=== PATIENT | female | born 1970 | race African-American/Black ===

== ENCOUNTER → 2018-06-16 | Outpatient (CLI) | payer BC ==
[2018-06-16 16:25] LABS: BASO # 0.1 x10^3/uL (0.0-0.2); BASO % 1 % (0-3); EOS # 0.1 x10^3/uL (0.0-0.7); EOS % 1 % (0-3); HEMATOCRIT 39.6 % (36.0-47.0); HEMOGLOBIN 13.5 g/dL (12.0-15.5); LYMPH # 3.2 x10^3/uL (1.0-4.8); LYMPH % 44 % (24-48); MEAN CORPUSCULAR HEMOGLOBIN 36 pg (25-35); MEAN CORPUSCULAR HGB CONC 34 g/dL (31-37); MEAN CORPUSCULAR VOLUME 105 fL (79-100); MONO # 0.5 x10^3/uL (0.0-1.1); MONO % 7 % (0-9); NEUT # 3.4 x10^3uL (1.8-7.7); NEUT % 47 % (31-73); PLATELET COUNT 212 x10^3/uL (140-400); RED BLOOD COUNT 3.77 x10^6/uL (3.50-5.40); RED CELL DISTRIBUTION WIDTH 13.5 % (11.5-14.5); WHITE BLOOD COUNT 7.4 x10^3/uL (4.0-11.0)
[2018-06-16 16:55] LABS: ALBUMIN 3.8 g/dL (3.4-5.0); ALBUMIN/GLOBULIN RATIO 1.2 (1.0-1.7); CALCIUM 9.3 mg/dL (8.5-10.1); CREATININE 1.1 mg/dL (0.6-1.0); GFR 63.6; POTASSIUM 4.1 mmol/L (3.5-5.1); TOTAL BILIRUBIN 0.3 mg/dL (0.2-1.0); TOTAL PROTEIN 7.1 g/dL (6.4-8.2)
--- NOTE | 2018-06-25 14:16 | PREOP HP ---
DATE OF SERVICE: DATE OF SURGERY: 07/03/2018 Vazquez Butcher RN dictating for Dr. Juan Whittington. HISTORY OF PRESENT ILLNESS: The patient is a pleasant 48-year-old who is having difficulty with neck pain and pain primarily in the right shoulder and right upper medial scapular region. She says when she turns her head, she can develop numbness, which is primarily on the right side, but that it can radiate up behind her ear and into her right face. The problem has been present for several months. She states that she has frequent episodes of numbness and pain. She underwent an ACDF in 2005, which included a fusion at C5-C6 and C6-C7 and eventually did well from that. She has also recently had a right rotator cuff. She rates her pain in her neck and her upper posterior back as a 7/10. Heat helps her. She has had physical therapy for 2 weeks, which she said did not help. She has refused epidural steroid injections. PAST MEDICAL HISTORY: Asthma, hypertension and ulcer. PAST SURGICAL HISTORY: Rotator cuff surgery in 1989, cholecystectomy in , carpal tunnel release in 2000, hysterectomy in 2001, C5-C6 and C6-C7 fusion in 2005, hemorrhoidectomy in 2016. FAMILY HISTORY: Alzheimer disease, cancer, diabetes, heart problems or disease, hypertension. SOCIAL HISTORY: Employed by [employer]. . Exercises weekly. Denies tobacco use. Drinks alcohol 1-2 times per week. Drinks coffee daily. ALLERGIES: IV CONTRAST DYE. CURRENT MEDICATIONS: Lisinopril, Nexium and fluoxetine. REVIEW OF SYSTEMS: A 12-point review of systems has been obtained and is noncontributory except that mentioned above. PHYSICAL EXAMINATION: NEUROSURGERY EXAMINATION: GENERAL APPEARANCE: Alert, pleasant, in no acute distress. HEAD: Normocephalic and atraumatic. NECK AND THYROID: Qjfw-iu-undclpiu tenderness with palpation of posterior cervical region, well healed incision. SKIN: Warm and dry. MUSCULOSKELETAL: Cervical paraspinal muscle bulk is normal, cervical range of motion is restricted, normal range of motion of the upper extremities bilaterally. EXTREMITIES: No clubbing, cyanosis, or edema. NEUROLOGIC: Alert and oriented x 3. Normal recent and remote memory. Strength 5/5 in bilateral upper and lower extremities. Sensory is intact to light touch in the upper and lower extremities. Reflexes are present and symmetric in the upper and lower extremities bilaterally. Normal gait. IMAGING: Reviewed. I reviewed a cervical MRI scan. On that study, the fusion from C5 through C7 is seen well. At C3-C4, there is posterior disk bulge on the left and severe neural foraminal narrowing bilaterally, but worse on the right side. ASSESSMENT: 1. Radiculopathy, cervical region. 2. Cervicalgia. PLAN: I believe her problems are related to severe neural foraminal narrowing at C3-C4. I recommended anterior cervical diskectomy and fusion, note that she has failed conservative measures. I discussed with her the surgery and the risks. She understands. She would like to go ahead. We will make the arrangements. I did outline with her soft tissue structures of the neck and sequelae of injury to each. I spoke with her in detail about the expected postoperative course. She understands. She would like to go ahead. We will make the arrangements. JUAN WHITTINGTON MD DR: FARAZ/desi JOB#: [id number] / [id number]
== END | disposition home or self-care (01) ==
LOC: SURGPAT 13:38
PROVIDERS: ATTEND Neurological Surgery
DX: Z01.818 Encounter for other preprocedural examination (principal); M54.12 Radiculopathy, cervical region
CPT/HCPCS: 36415; 80053; 85025; 87641

== ENCOUNTER 2018-07-03 08:52 | Observation (INO) | payer BC ==
[~2018-07-03] VITALS: Ht 152.4 cm; Wt 69.0 kg
--- NOTE | 2018-07-03 06:52 | PREOP HP ---
DATE OF SERVICE: 07/03/2018 DATE OF SURGERY: 07/03/2018 HISTORY OF PRESENT ILLNESS: The patient is a pleasant 48-year-old who is having difficulty with neck pain and pain primarily in the right shoulder and right upper medial scapular region. She says when she turns her head, she can develop numbness, which is primarily on the right side, but that it can radiate up behind her ear and into her right face. The problem has been present for several months. She states that she has frequent episodes of numbness and pain. She underwent an ACDF in 2005, which included a fusion at C5-C6 and C6-C7 and eventually did well from that. She has also recently had a right rotator cuff surgery. She rates her pain in her neck and her upper posterior back as a 7/10. Heat helps her. She has had physical therapy for 2 weeks, which she said did not help. She has refused epidural steroid injections. PAST MEDICAL HISTORY: Asthma, hypertension and ulcer. PAST SURGICAL HISTORY: Rotator cuff surgery , cholecystectomy in , carpal tunnel release in 2000, hysterectomy in 2001, C5-C6 and C6-C7 fusion in 2005, hemorrhoidectomy in 2015. FAMILY HISTORY: Alzheimer disease, cancer, diabetes, heart problems or disease, hypertension. SOCIAL HISTORY: Employed by [employer]. . Exercises weekly. Denies tobacco use. Drinks alcohol 1-2 times per week. Drinks coffee daily. ALLERGIES: IV CONTRAST DYE. CURRENT MEDICATIONS: Lisinopril, Nexium and fluoxetine. REVIEW OF SYSTEMS: A 12-point review of systems has been obtained and is noncontributory except that mentioned above. PHYSICAL EXAMINATION: NEUROSURGERY EXAMINATION: GENERAL APPEARANCE: Alert, pleasant, in no acute distress. HEAD: Normocephalic and atraumatic. NECK AND THYROID: Cyyn-ai-ahvieuoq tenderness with palpation of posterior cervical region, well healed incision. SKIN: Warm and dry. MUSCULOSKELETAL: Cervical paraspinal muscle bulk is normal, cervical range of motion is restricted, normal range of motion of the upper extremities bilaterally. EXTREMITIES: No clubbing, cyanosis, or edema. NEUROLOGIC: Alert and oriented x 3. Normal recent and remote memory. Strength 5/5 in bilateral upper and lower extremities. Sensory is intact to light touch in the upper and lower extremities. Reflexes are present and symmetric in the upper and lower extremities bilaterally. Normal gait. IMAGING: I reviewed a cervical MRI scan. On that study, the fusion from C5 through C7 is seen well. At C3-C4, there is posterior disc bulge on the left and severe neural foraminal narrowing bilaterally, but worse on the right side. ASSESSMENT/PLAN: I believe her problems are related to severe neural foraminal narrowing at C3-C4. I recommended anterior cervical discectomy and fusion, note that she has failed conservative measures. I discussed with her the surgery and the risks. She understands. She would like to go ahead. We will make the arrangements. I did outline with her soft tissue structures of the neck and sequelae of injury to each. I spoke with her in detail about the expected postoperative course. She understands. She would like to go ahead. We will make the arrangements. ERMELINDA WHITTINGTON MD DR: FARAZ/desi JOB#: [id number] / [id number] ALFRED
[~2018-07-03 08:52] MED LIST: BACITRACIN 50,000 UNIT in IV NORMAL SALINE 1000ML BAG 1,000 ML IRR ONE; BUPIVAC MPF-EPI 0.5%-1:200000 30 ML VIAL. ONE; GELATIN SPONGE SIZE 100. ONE; IV RINGERS,LACTATED 1000ML 1,000 ML IV SCH; LIDOCAINE 1% PF 2 ML VIAL. ID PRN; ONDANSETRON PF 4 MG/2 ML VIAL. IV PRN; PROCHLORPERAZINE 10 MG/2 ML VIAL. IV PRN; THROMBIN TOPICAL 20,000 UNIT SPRAY.SYRN KIT TP ONE; fentaNYL PF VIAL 100 MCG/2 ML VIAL IV PRN
[2018-07-03] MEDS ORDERED: fentaNYL PF VIAL 250 MCG/5 ML VIAL ONE (10:47)
[2018-07-03] MEDS ORDERED: MIDAZOLAM HCL/PF 2 MG/2 ML VIAL. ONE (10:48)
[2018-07-03] MEDS ORDERED: PROPOFOL 50 ML IV ONE (10:48)
[2018-07-03] MEDS ORDERED: ISOFLURANE > 120 MINUTES. IH ONE (10:48)
[2018-07-03] MEDS ORDERED: LIDOCAINE 2% PF Vial for OR 5 ML VIAL. ONE (10:48)
[2018-07-03] MEDS ORDERED: ONDANSETRON PF 4 MG/2 ML VIAL. ONE (10:48)
[2018-07-03] MEDS ORDERED: REMIFENTANIL 2 MG VIAL. IV ONE (10:48)
[2018-07-03] MEDS ORDERED: DEXAMETHASONE SOD PHOS 20 MG/5 ML VIAL. ONE (10:48)
[2018-07-03] MEDS ORDERED: PROPOFOL 20 ML IV ONE (10:48)
[2018-07-03] MEDS ORDERED: ROCURONIUM 50 MG/5 ML VIAL. ONE (10:49)
[2018-07-03] MEDS: MORPHINE SULFATE 2 MG/ML VIAL. IV PRN ×3 (14:46→15:20)
[2018-07-03] MEDS: HYDROmorphone 2 MG/ML VIAL IV PRN ×2 (14:59→16:41)
[2018-07-03] MEDS: fentaNYL PF VIAL 100 MCG/2 ML VIAL IV PRN ×2 (15:09→15:30)
[2018-07-03] MEDS ORDERED: DEXAMETHASONE SOD PHOS 4 MG/ML VIAL ONE (15:27)
[2018-07-03] MEDS ORDERED: CALCIUM CARBONATE 500 MG TAB.CHEW PO PRN (15:30)
[2018-07-03] MEDS ORDERED: ACETAMINOPHEN 325 MG TABLET. PO PRN (15:30)
[2018-07-03] MEDS ORDERED: 0.9 % SODIUM CHLORIDE 10 ML DISP.SYRIN. IV PRN (15:30)
[2018-07-03] MEDS ORDERED: NALOXONE 0.4 MG/ML VIAL. IV PRN (15:30)
[2018-07-03] MEDS ORDERED: MAG HYDROX/ALUMINUM HYD/SIMETH 30 ML ORAL.SUSP PO PRN (15:30)
[2018-07-03] MEDS ORDERED: MAGNESIUM HYDROXIDE 2,400 MG/30 ML ORAL.SUSP. PO PRN (15:30)
[2018-07-03] MEDS ORDERED: fentaNYL PF VIAL 100 MCG/2 ML VIAL IV PRN (15:30)
[2018-07-03] MEDS ORDERED: diphenhydrAMINE HCL 25 MG CAPSULE PO PRN (15:30)
[2018-07-03] MEDS ORDERED: ONDANSETRON PF 4 MG/2 ML VIAL. IV PRN (15:30)
[2018-07-03 16:15] VITALS: BP 152/99
[2018-07-03] MEDS ORDERED: DEXAMETHASONE SOD PHOS 4 MG/ML VIAL IV ONE (16:15)
[2018-07-03] MEDS: METHOCARBAMOL 750 MG TABLET PO SCH ×2 (16:41→22:07)
[2018-07-03] MEDS: DEXAMETHASONE SOD PHOS 4 MG/ML VIAL IV SCH ×2 (16:41→23:33)
[2018-07-03] MEDS: POTASSIUM CL 20MEQ D5-0.45NACL 1,000 ML IV SCH (16:42)
[2018-07-03] MEDS: ceFAZolin SODIUM 1 GM in IV DEXTROSE 5% 50 ML IV SCH (17:58)
[2018-07-03] MEDS: oxyCODONE/APAP 5/325 1 TAB TABLET PO PRN ×3 (18:05→23:27)
[2018-07-03 19:00] VITALS: BP 117/76
[2018-07-03] MEDS ORDERED: LISI1TAB3 PO (19:16)
[2018-07-03] MEDS ORDERED: FLUO20CA16 PO (19:16)
--- NOTE | 2018-07-03 19:24 | NUR ---
Chance was admitted post acdf. . several family members at bedside. daily medications found and listed . she was rating her pain an "8' upon arrival and has gone down to a "6" after Dilaudid and Percocet. 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 but her sensation is opposite. ice to back of her nape.
[2018-07-03] MEDS: DOCUSATE SODIUM 100 MG CAPSULE. PO SCH (22:07)
--- NOTE | 2018-07-03 22:21 | NUR ---
Page to [facility] service per patient's request for Ruben.
[2018-07-03] MEDS ORDERED: ZOLPIDEM 5 MG TABLET. PO PRN (22:30)
[2018-07-03 23:00] VITALS: BP 117/73
[2018-07-04 03:00] VITALS: BP 173/104
[2018-07-04] MEDS: ceFAZolin SODIUM 1 GM in IV DEXTROSE 5% 50 ML IV SCH ×2 (03:09→11:55)
[2018-07-04] MEDS: oxyCODONE/APAP 5/325 1 TAB TABLET PO PRN ×3 (03:11→11:13)
[2018-07-04] MEDS: POTASSIUM CL 20MEQ D5-0.45NACL 1,000 ML IV SCH (04:48)
[2018-07-04] MEDS: DEXAMETHASONE SOD PHOS 4 MG/ML VIAL IV SCH (06:27)
[2018-07-04 07:00] VITALS: BP 164/98
[2018-07-04] MEDS: DOCUSATE SODIUM 100 MG CAPSULE. PO SCH (08:44)
[2018-07-04] MEDS: METHOCARBAMOL 750 MG TABLET PO SCH ×2 (08:44→12:57)
[2018-07-04 11:00] VITALS: BP 154/96
--- NOTE | 2018-07-04 11:35 | DISCH ---
DISCHARGE INSTRUCTIONS Condition on Discharge Condition on Discharge: Stable Activity After Discharge Activity Instructions for Disc: Activity as tolerated, Avoid exertion Other activity instructions: no driving for a week Bathing Instructions: Shower-keep dressing dry Lifting Instructions after Dis: No heavy lifting, No pulling or pushing, Do not lift >10 pounds Diet after Discharge Additional Diet Restrictions: resume home diet Wound Incision Care Wound/Incision Care: Ice to area for comfort Other wound/incision instructi: may remove dressing in 48 hours if dry then may shower, no soaking Contacting the after DC Call your doctor for: Concerns you may have Follow-Up Follow up with: Dr. Whittington's nurse in 2 weeks [phone] ERMELINDA WHITTINGTON MD Jul 04, 2018 11:35
[2018-07-04] MEDS ORDERED: METH750T2 PO (11:38)
[2018-07-04] MEDS ORDERED: DOCU-109 PO (11:38)
[2018-07-04] MEDS ORDERED: OXYC1TAB15 PO (11:38)
--- NOTE | 2018-07-04 12:05 | NUR ---
SW following for discharge planning. Discussed with RN. RN advised no needs at this time. SW will continue to follow.
--- NOTE | 2018-07-04 13:10 | NUR ---
Discharge instructions given with prescriptions. Answered questions and concerns. Verbalized understanding. Received extra dressings to take home. Pt discharge home accompanied by spouse and son.
--- NOTE | 2018-07-04 15:08 | PATHOLOGY ---
[facility] Accession Number: [id number] . 01 Material submitted: . CERVICAL DISC . 01 Clinical history: . Cervical radiculopathy, cervicalgia . 02 Diagnosis: Segments of fibrocartilaginous tissue and bone, cervical disc: - Degenerative changes of fibrocartilaginous tissue. MBR/07/04/2018 . 02 Comment: There is no evidence of an acute inflammatory process or malignancy. (JPM:cell assembly pinner; 07/04/2018) . 02 Electronically signed: . Edward Bowers MD, Pathologist NPI- [id number] . 01 Gross description: . Received in formalin labeled "Walker, [place], cervical disc," are several pieces of glistening, fibrous tissue measuring 1.7 x 1.6 x 0.3 cm in aggregate dimensions, containing small fragments of possible bone. The tissue is filtered and submitted entirely in cassette A1, following decalcification. (TSD; 07/03/2018) TOB/TOB . 02 Pathologist provided ICD-10: M50.30 . 02 CPT . 716622, [id number] Specimen Comment: A courtesy copy of this report has been sent to Specimen Comment: [phone], . Specimen Comment: Report sent to / DR JEROME Performed at: 01 [facility] [address], [place] [id number] MD Samson Aguillon MD Phone: [phone] Performed at: 02 [facility] [address] [place], [place] [id number] MD Edward Bowers MD Phone: [phone]
--- NOTE | 2018-07-08 19:09 | OP ---
DATE OF SURGERY: 07/04/2018 PREOPERATIVE DIAGNOSES: Disc bulging with severe neuroforaminal narrowing and radiculopathy, C3-C4. POSTOPERATIVE DIAGNOSIS: Disc bulging with severe neuroforaminal narrowing and radiculopathy, C3-C4. OPERATION PERFORMED: An anterior cervical microdiscectomy, C3-C4; anterior cervical interbody fusion, C3-C4; anterior cervical plate, C3-C4. The operation was done with multimodality monitoring including EMG monitoring, SSEP monitoring, NIMS monitoring, we also used fluoroscopy and microscopy. SURGEON: Juan Whittington M.D. TENTMAKER: JAKY Goncalves assisted with surgery. She assisted with the exposure, the microdiscectomy as well as the closure. OPERATIVE INDICATIONS: The patient is a pleasant 48-year-old woman who had difficulty with severe neck pain and pain, which radiates primarily in the right shoulder and right upper medial scapular area. She had undergone an ACDF in 2005 at C5-C6 and C6-C7 and did well from that eventually. She failed conservative measures. On imaging studies, the above-mentioned findings were seen and I recommended an anterior cervical microdiscectomy and fusion. I did speak with her in detail about that the risks of surgery including injury to the soft tissue structures of the neck and sequelae of injury to each. I spoke with her about her expected postoperative course. I spoke about the technique of the operation, use of anterior plating. She understood and she wished to go ahead. We made the arrangements. DESCRIPTION OF PROCEDURE: Following general endotracheal anesthesia, the patient was positioned supine on the operating room table. The head was very gently extended. The anterior cervical region was then prepped and draped in standard fashion. AIDA hose and AV impulse boots were applied for DVT prophylaxis. The microscope was draped. Fluoroscopy was draped and brought into the field. Monitoring was established. Ancef 2 grams was given less than 1 hour prior to initiation of the surgery. Using fluoroscopic guidance, an incision was made from the midline around to the right side in a skin crease. I dissected down skin and subcutaneous tissue, I dissected around the medial aspect of the sternocleidomastoid and carotid artery sheath down the anterior cervical vertebral bodies. There was considerable scar and dissection was relatively slow and methodical. I did sharply divide the platysma. Once exposure was achieved, I placed the Cecil anterior cervical retractors wedged in the longus colli muscles bilaterally. I placed 14-mm pins in C3 and C4 and I confirmed my position fluoroscopically. I incised the anterior annulus with #11 blade. I distracted disc space. I used high-speed air drill to drill the anterior spurring and saved this bone for use for the fusion. I then trimmed away the disc using pituitaries as well as endplate scrapers and as well used the drill for any spurring. Posteriorly, I drilled away the spurring and then, I used the 1 and 2 mm micro Kerrison's to open laterally bilaterally. I did open the annulus as well as the ligament and I assured myself that she was well opened bilaterally. I scraped cartilaginous endplate. I tapped into position interbody fusion cage, which was packed with allograft and autograft bone and released the cage. I then measured and placed a 12-mm plate and used 14-mm screws. I placed superior and inferior screws first followed by the remaining screws, which were all locked. I irrigated copiously. The images looked quite good. I removed the retractor. I confirmed again the appearance and I was quite satisfied. Hemostasis was excellent throughout. I irrigated copiously with antibiotic solution. I closed the platysma and then, I closed the subcutaneous tissue and the skin was closed with 4-0 subcuticular stitch. The operation went very well and the patient was awakened and eventually taken to recovery room in excellent condition. I was quite pleased with the surgery. JUNA WHITTINGTON MD DR: FARAZ/desi JOB#: [id number] / [id number] ALFRED
== END 2018-07-04 13:15 | disposition home or self-care (01) ==
LOC: SURG 08:52 → 4 NORTH 14:50
PROVIDERS: ADMIT Neurological Surgery; ATTEND Neurological Surgery
DX: M50.11 Cervical disc disorder with radiculopathy, high cervical region (principal); M48.02 Spinal stenosis, cervical region; J45.909 Unspecified asthma, uncomplicated; I10 Essential (primary) hypertension; Z90.710 Acquired absence of both cervix and uterus; Z98.1 Arthrodesis status; Z83.3 Family history of diabetes mellitus; Z82.0 Family history of epilepsy and other diseases of the nervous system; Z82.49 Family history of ischemic heart disease and other diseases of the circulatory system
CPT/HCPCS: 20931; 20936; 22551; 22845; 22853; 76000; 88304; 88311; 96365; 96366; 96375; 96376; A7015; C1713; G0378; G0379; J0690; J0780; J1100; J1170; J2001; J2250; J2270; J2704; J3010; J3490; J7030; J7120; J0696; J2405